=== PATIENT | female | born 1980 ===

== ENCOUNTER 2020-04-23 18:57 | Outpatient (CLI) | payer BC ==
[~2020-04-23] VITALS: Ht 172.7 cm; Wt 147.7 kg
[2020-04-23] VITALS (10 sets, daily range): BP systolic 126–1285; BP diastolic 74–83; PULSE 83–98; TEMP 97.6
--- NOTE | 2020-04-23 19:05 | NUR ---
G4L3. 33.2. Ambulatory to [facility] 3 for blood pressure checks. EFM and TOCO explained and applied. Pt states she just has been feeling off all day. woke up with swollen feet and a headache. Denies taking any tylenol for headache. pt states she took her blood pressure at home and BP was 141/90 so she states she called and she told her to come in and get checked out. Plan of care explained. 1937: called and updated on pts status. See physican notification. Pt updated plan of care. 2006: Pt offf the monitors. 2015: Discharge instructions given to pt who verbalizes her understanding. Pt ambualtory off unit.
[2020-04-23] MEDS ORDERED: PRENATAL MVI PO (19:24)
[2020-04-23] MEDS ORDERED: CALCIUM CARBON650 M2 PO (19:24)
[2020-04-23] MEDS ORDERED: ZOLOFT 50MG50 MG PO (19:25)
[2020-04-23] MEDS ORDERED: PRILOSEC 20MG20 MG PO (19:25)
== END 2020-04-23 20:06 | disposition home or self-care (01) ==
LOC: LDRO 18:57
DX: O26.893 Other specified pregnancy related conditions, third trimester (principal); O13.3 Gestational [pregnancy-induced] hypertension without significant proteinuria, third trimester; R51.9 Headache, unspecified; Z3A.33 33 weeks gestation of pregnancy

== ENCOUNTER → 2020-06-02 | Outpatient (CLI) | payer BC ==
[~2020-06-02] MED LIST: CALCIUM CARBON650 M2 PO; IBU600 MG PO; LEXAPRO 10MG10 MG PO; PERCOCET 325 MG1 TA2 PO; PRENATAL MVI PO; PRILOSEC 20MG20 MG PO; ZOLOFT 50MG50 MG PO
== END | disposition still patient (30) ==
LOC: ZCOL.LAB 03:37
DX: Z20.822 Contact with and (suspected) exposure to COVID-19 (principal)

== ENCOUNTER 2020-06-06 04:29 | Inpatient (IN) | payer BC ==
[~2020-06-06] VITALS: Ht 175.3 cm; Wt 109.1 kg
[2020-06-06] VITALS (20 sets, daily range): BP systolic 137–158; BP diastolic 80–97; PULSE 67–91; TEMP 97–98.5
[~2020-06-06 04:29] MED LIST changes: -IBU600 MG PO; -LEXAPRO 10MG10 MG PO; -PERCOCET 325 MG1 TA2 PO
--- NOTE | 2020-06-06 04:40 | NUR ---
G4L3 at 39 weeks and 4 days arrives to unit ambulatory with complaint of spontaneous rupture of membranes around 0300. Pt reports large gush of clear fluid. Reports contractions have started to get a little stronger but is unable to time them. Denies vaginal bleeding, reports good movement. Pt denies headaches, blurry vision, or RUQ pain. Pt oriented to room, bed in low and locked position, call light within reach. Clean gown on. US and toco explained and applied. Admission assessment started. Vitals obtained. Pt has a history of x2 and most recent delivery for NRFHT's. Pt desires repeat . Amnitrace positive SVE 2-3/50/-3, large gush of clear fluid after exam. head felt as presenting part.
--- NOTE | 2020-06-06 05:30 | NUR ---
18 G IV started in right forearm. Admission labs obtained off IV start. Lactated Ringers bolus infusing to gravity.
--- NOTE | 2020-06-06 05:30 | NUR ---
Dr. Boggs at bedside discussing plan of care with patient, pt verbalized understanding. Consents reviewed with patient, all questions answered.
[2020-06-06 06:02] LABS: HEMATOCRIT 33.8 % (37.0-47.0); HEMOGLOBIN 10.7 g/dl (12.5-16.0); MEAN CELL VOLUME 85 fl (80.0-100.0); MEAN CORPUSCULAR HEMOGLOBIN 27 pg (27.0-31.0); MEAN CORPUSCULAR HGB CONC 32 g/dl (33.0-37.0); MEAN PLATELET VOLUME 10.2 fl (7.4-10.4); PLATELET COUNT 298 K/mm3 (130-400); REDCELL DISTRIBUTION WIDTH-CV 14.1 % (11.5-14.5)
[2020-06-06 06:08] LABS: ALANINE AMINOTRANSFERASE 15 U/L (4-34); ALBUMIN 3.3 gm/dL (3.5-5.0); ALKALINE PHOSPHATASE 145 U/L (50-136); ANION GAP 9 mmol/L (7-16); AST,SGOT 25 U/L (15-37); BILIRUBIN,TOTAL < 0.1 mg/dL (0.0-1.0); BLOOD UREA NITROGEN 11 mg/dL (7-17); CARBON DIOXIDE 19 mmol/L (22-30); CHLORIDE 106 mmol/L (98-107); CREATININE, serum 0.63 (0.52-1.25); GLUCOSE 80 mg/dL (74-106); POTASSIUM 3.6 mmol/L (3.4-5.0); SODIUM 135 mmol/L (137-145); TOTAL PROTEIN 6.4 gm/dL (6.4-8.2)
[2020-06-06 06:15] LABS: BAND 3 % (0-10); EOSINOPHIL 2 % (0-4); LYMPHOCYTE 19 % (20.0-51.0); NEUTROPHILS 72 % (42.0-75.2); PLATELET ESTIMATE NORMAL (NORMAL)
[2020-06-06 06:16] LABS: HYPOCHROMIA 2+
[2020-06-06 07:09] LABS: MUCOUS Present /lpf; PH 5 (5-8); SQUAMOUS EPITHELIAL 0-2 /hpf; URINE APPEARANCE Hazy; URINE BACTERIA None Seen /hpf; URINE BILIRUBIN Negative (NEGATIVE); URINE BLOOD 1+ (NEGATIVE); URINE CALCIUM OXALATE CRYSTAL Present /hpf; URINE COLOR Yellow; URINE GLUCOSE Negative (NEGATIVE); URINE KETONE Negative (NEGATIVE); URINE LEUKOCYTE ESTERASE Negative (NEGATIVE); URINE NITRATE Negative (NEGATIVE); URINE PROTEIN(semi-quant) 1+ (NEGATIVE); URINE RBC 20-50 /hpf; URINE UROBILINOGEN Negative (NEGATIVE)
--- NOTE | 2020-06-06 07:20 | NUR ---
0720-To PACU via bed. A&Ox4. Denies pain. VSS, see recovery record. Recieved report from TWILA Russell. Abdominal incision C/C/I. Fundal massage firmTena. Updated on plan of care and remained with patient per recovery protocol.
[2020-06-06 07:35] LABS: COLLECTION METHOD CLEAN CATCH
[2020-06-06] MEDS ORDERED: LEXAPRO 10MG10 MG PO (08:59)
--- NOTE | 2020-06-06 13:30 | NUR ---
1330-Patient to bathroom with standby assist. Steady gait, ruby removed by this RN. Carmen care assisted. Updated on plan of care and safety.
[2020-06-07 01:00] VITALS: BP 129/82; PULSE 76; TEMP 97.8
[2020-06-07 07:20] VITALS: BP 133/90; PULSE 80; TEMP 98
[2020-06-07 07:40] LABS: HEMATOCRIT 31.8 % (37.0-47.0)
[2020-06-07] MEDS ORDERED: IBU600 MG PO (08:23)
[2020-06-07] MEDS ORDERED: PERCOCET 325 MG1 TA2 PO (08:23)
== END 2020-06-07 10:30 | disposition home or self-care (01) | DRG 788 ==
LOC: LDR 04:29 → OB 08:00
PROVIDERS: Obstetrics & Gynecology; ADMIT Obstetrics & Gynecology
PROC: 10D00Z1 Extraction of Products of Conception, Low, Open Approach (ICD-10-PCS; principal; 2020-06-06)
DX: O13.4 Gestational [pregnancy-induced] hypertension without significant proteinuria, complicating childbirth (principal); O99.344 Other mental disorders complicating childbirth; F32.9 Major depressive disorder, single episode, unspecified; O99.62 Diseases of the digestive system complicating childbirth; O99.214 Obesity complicating childbirth; E66.9 Obesity, unspecified; Z3A.39 39 weeks gestation of pregnancy; Z37.0 Single live birth; K21.9 Gastro-esophageal reflux disease without esophagitis; O34.219 Maternal care for unspecified type scar from previous cesarean delivery
CPT/HCPCS: J0690; J1885; J2405; J2590; J7120